=== PATIENT | female | born 1980 | race Caucasian/White ===

== ENCOUNTER 2017-05-29 21:49 | Emergency (ER) | payer OTHER, MEDICAID ==
[~2017-05-29] VITALS: Ht 175.3 cm; Wt 90.9 kg
[2017-05-29] MEDS ORDERED: RISP3 PO (21:58)
[2017-05-29] MEDS ORDERED: SERT50TA12 PO (21:58)
[2017-05-29] MEDS ORDERED: HYD50 PO (21:58)
[2017-05-29] MEDS ORDERED: BUTALBITAL/ACETAMINOPHEN/CAFFEINE 50-325-40 MG TABLET PO ONE (23:30)
[2017-05-29 23:32] VITALS: BP 137/84
== END 2017-05-29 23:37 | disposition home or self-care (01) ==
LOC: EDBD 21:51 → EMS 21:51
DX: G43.909 Migraine, unspecified, not intractable, without status migrainosus (principal); F17.210 Nicotine dependence, cigarettes, uncomplicated; Z76.0 Encounter for issue of repeat prescription; Z88.8 Allergy status to other drugs, medicaments and biological substances
CPT/HCPCS: 99283

== ENCOUNTER 2017-05-30 01:11 | Emergency (ER) | payer OTHER, MEDICAID ==
[~2017-05-30] VITALS: Ht 175.3 cm; Wt 86.4 kg
[~2017-05-30 01:11] MED LIST: HYD50 PO; RISP3 PO; SERT50TA12 PO
[2017-05-30] MEDS ORDERED: TraMADol HCL 50 MG TABLET PO ONE (02:45)
[2017-05-30 03:08] VITALS: BP 122/83
== END 2017-05-30 03:10 | disposition home or self-care (01) ==
LOC: EMS 01:13
DX: K08.89 Other specified disorders of teeth and supporting structures (principal); G43.909 Migraine, unspecified, not intractable, without status migrainosus; F17.210 Nicotine dependence, cigarettes, uncomplicated; Z88.8 Allergy status to other drugs, medicaments and biological substances
CPT/HCPCS: 99283

== ENCOUNTER 2017-06-07 21:08 | Emergency (ER) | payer OTHER, MEDICAID ==
[~2017-06-07] VITALS: Ht 175.3 cm; Wt 95.0 kg
[2017-06-07] MEDS ORDERED: NAPROXEN 250 MG TABLET PO ONE (22:45)
[2017-06-07 22:55] VITALS: BP 124/77
== END 2017-06-07 23:02 | disposition home or self-care (01) ==
LOC: EMS 21:09
DX: Z76.0 Encounter for issue of repeat prescription (principal); R03.0 Elevated blood-pressure reading, without diagnosis of hypertension; R68.84 Jaw pain; F32.9 Major depressive disorder, single episode, unspecified; F41.9 Anxiety disorder, unspecified; G43.909 Migraine, unspecified, not intractable, without status migrainosus; R51 Headache
CPT/HCPCS: 99283

== ENCOUNTER 2017-06-17 23:08 | Emergency (ER) | payer OTHER, MEDICAID ==
[~2017-06-17] VITALS: Ht 167.6 cm; Wt 72.7 kg
[2017-06-17 23:13] VITALS: BP 135/85
== END 2017-06-18 00:05 | disposition left against medical advice (07) ==
LOC: EMS 23:09
DX: R44.0 Auditory hallucinations (principal); F41.9 Anxiety disorder, unspecified; F32.9 Major depressive disorder, single episode, unspecified; Z53.21 Procedure and treatment not carried out due to patient leaving prior to being seen by health care provider